=== PATIENT | female | born 1950 | race Caucasian/White ===

== ENCOUNTER → 2016-09-22 | Day surgery (SDC) | payer MEDICARE, OTHER ==
[~2016-09-22] VITALS: Ht 167.6 cm; Wt 102.1 kg
[~2016-09-22] MED LIST: AFRIN) (GENASAL15 ML NOSE; ALIGN4 MG PO; APRISO0.375 GM PO; BYSTOLIC5 MG PO; CALCIUM600 MG PO; CORDARONE,PACE200 MG PO; COUMADIN ** IA5 MG PO; CPAP INH; EVISTA60 MG PO; FISH OIL 500 M1 EAC3 PO; GLUCOPHAGE500 MG PO; GLUCOSAMINE 1,1 EACH PO; HYDROXYZINE HCL25 MG PO; IMDUR30 MG PO; IRON18 MG PO; K-TAB ER20 MEQ PO; LASIX40 MG PO; LIORESAL10 MG PO; LIPITOR80 MG PO; LOPRESSOR25 MG PO; LOVENOX 3030 MG/0.3 SUB-Q; MAGNESIUM OXID400 MG PO; MECLIZINE HCL25 M1 PO; NITROSTAT0.4 MG SL; NORCO 5-325 TA1 EACH PO; PENTASA500 MG PO; PROTONIX40 MG PO; TRADJENTA5 MG PO; VITAMIN D1000 UNI1 PO; ZESTRIL2.5 MG PO
--- NOTE | ~2016-09-22 | OR ---
PATIENT'S NAME: JOSH OLIVA [facility] AGE: 65 Y [address] ROOM: [place] [address] [place] [facility] [place]: 09/22/2016 OR/Procedure Report DISCHARGE DATE: FAMILY PHYSICIAN: Papa Dominguez MD ATTENDING PHYSICIAN: Merlin Moreno SURGEON: Merlin Moreno MD CAREER DEVELOPMENT SPECIALIST: DATE OF PROCEDURE: 09/22/2016 INDICATIONS: Atrial fibrillation refractory to antiarrhythmic drug therapy. DESCRIPTION FOR PROCEDURE: The patient was brought to the preoperative suite, prepped and draped in normal manner. Patches placed in the AP dimensions. Subsequently MAC anesthesia was delivered through the nurse telephone installer, Adrian Johnson. A total of 70 mg of propofol was given. Next, 200 joules of synchronized therapy was delivered with spiritism of sinus rhythm only to recur into atrial fibrillation. Subsequently 300 joules was given which did result in sustained sinus rhythm. CONCLUSION: 1. Successful spiritism of normal sinus rhythm using DC cardioversion. 2. 12-lead EKG is pending at the time of this dictation. 3. The patient will continue antiarrhythmic drug therapy as well as anticoagulation therapy. She will follow up in my office in 1 week for an INR and I will see her back in 2 weeks. I would like to thank Dr. Dominguez for the opportunity to participate in the care of Mrs. Oliva. MERLIN MORENO MD DJM/modl /[id number] d: 09/24/16 1104 t: 09/24/16 1134, OPERATIVE SUMMARY
== END | disposition disaster alternative care site (69) ==
LOC: GPOC 09-18 17:00 → GSDC 06:50 → GPOC 17:00
PROC: 5A2204Z Restoration of Cardiac Rhythm, Single (ICD-10-PCS; principal; 2016-09-22)
DX: I48.0 Paroxysmal atrial fibrillation (principal); I11.0 Hypertensive heart disease with heart failure; I50.9 Heart failure, unspecified; I25.10 Atherosclerotic heart disease of native coronary artery without angina pectoris; K21.9 Gastro-esophageal reflux disease without esophagitis; E78.2 Mixed hyperlipidemia; G47.33 Obstructive sleep apnea (adult) (pediatric); R00.1 Bradycardia, unspecified; E11.9 Type 2 diabetes mellitus without complications; G89.29 Other chronic pain; M54.5 Low back pain; E66.9 Obesity, unspecified; Z68.35 Body mass index [BMI] 35.0-35.9, adult; Z98.1 Arthrodesis status; Z88.0 Allergy status to penicillin; Z88.8 Allergy status to other drugs, medicaments and biological substances; Z90.49 Acquired absence of other specified parts of digestive tract; Z90.710 Acquired absence of both cervix and uterus; Z98.890 Other specified postprocedural states; Z79.01 Long term (current) use of anticoagulants; Z79.899 Other long term (current) drug therapy
CPT/HCPCS: J2001; J7030

== ENCOUNTER → 2016-09-29 | Outpatient (CLI) | payer MEDICARE, OTHER ==
[2016-09-29 15:43] LABS: BASOPHIL # 0.1 K/uL (0.0-0.2); EOSINOPHIL # 0.4 K/uL (0.0-0.5); HEMATOCRIT 39.2 % (33.0-46.0); HEMOGLOBIN 12.4 g/dL (10.0-15.0); IMMATURE GRANULOCYTE % 0.4 %; LYMPHOCYTE # 2.2 K/uL (0.8-4.0); MCH 29.7 pg (27.0-34.0); MCHC 31.6 gm/dL (32.0-36.5); MONOCYTE # 0.6 K/uL (0.0-1.0); MONOCYTE % 8.7 %; NEUTROPHIL # (ANC) 3.9 K/uL (1.8-7.8); NEUTROPHIL % 53.9 %; NRBC % 0 /100WBC (0-0.00); PLATELET COUNT 330 K/uL (150-450); RBC 4.17 M/uL (3.50-5.50); RDW-CV 14.7 % (11.9-14.6); WBC 7.2 K/uL (4.0-11.0)
[2016-09-29 15:59] LABS: ALBUMIN 3.7 gm/dL (3.5-5.0); ANION GAP 14.2 (10.0-19.0); CALCIUM 8.9 mg/dL (8.5-10.5); CREATININE 1.2 mg/dL (0.5-1.1); PHOSPHORUS 3.4 mg/dL (2.5-4.9); POTASSIUM 4.2 mMol/L (3.7-5.1)
[2016-09-29 16:07] LABS: BILIRUBIN URINE NEGATIVE (NEGATIVE); BLOOD URINE NEGATIVE /UL (NEGATIVE); GLUCOSE URINE NEGATIVE (NEGATIVE); KETONE URINE NEGATIVE (NEGATIVE); LEUKOCYTES URINE 25 /UL (NEGATIVE); NITRITE URINE NEGATIVE (NEGATIVE); PROTEIN URINE NEGATIVE (NEGATIVE); UROBILINOGEN URINE NORMAL (NORMAL)
[2016-09-29 16:13] LABS: COLOR URINE YELLOW (YELLOW); TURBIDITY URINE CLEAR (CLEAR)
[2016-09-29 16:35] LABS: BACTERIA URINE RARE (NEGATIVE); RBC URINE 0-2 #/HPF (NEGATIVE)
== END | disposition disaster alternative care site (69) ==
LOC: LCNC 15:36
PROVIDERS: Internal Medicine Interventional Cardiology
DX: I48.0 Paroxysmal atrial fibrillation (principal)

== ENCOUNTER 2016-10-05 05:51 | Day surgery (SDC) | payer MEDICARE, OTHER ==
[~2016-10-05] VITALS: Ht 167.6 cm; Wt 105.1 kg
--- NOTE | ~2016-10-05 | OR ---
PATIENT'S NAME: JOSH OLIVA [facility] AGE: 65 Y [address] ROOM: [address] [address] LOCATION: [facility] ADMIT DATE: 10/05/2016 OR/Procedure Report DISCHARGE DATE: 10/06/2016 FAMILY PHYSICIAN: Papa Dominguez MD ATTENDING PHYSICIAN: Oscar Moreno SURGEON: Oscar Moreno MD BUMPER OPERATOR: DATE OF PROCEDURE: 10/05/2016 PROCEDURE: Single chamber pacemaker insertion INDICATION: Sick sinus syndrome in the setting of chronic atrial fibrillation PROCEDURE/FINDINGS: Ms. Oliva was brought to the cardiac laboratory aide in the fasting state and prepped and draped in the normal manner. 1% lidocaine was used for local skin infiltration of the left infraclavicular region. An 18 gauge Cook needle was advanced to the left subclavian vein through which an 0.025 wire was placed. Needle was removed. Proximal end of the wire was attached to the surgical gown with a hemostat. Attention was then turned towards creation of the pacemaker pocket where additional 1% lidocaine was given. Next, a #11 blade was used for primary skin incision. Following this using Bovie cautery as well as blunt dissection pectoralis fascia was identified. This is entered into and dissected both cephalad as well as caudally. The previously placed 0.025 wires were brought through the skin into the pacemaker pocket on which a 7F sheath was placed. Following this the wire and dilator were removed. Using fluoroscopic guidance, the right ventricular lead was placed. This is a [employer] MRI S1 lead, model #7741, serial #[id number]. Thresholds were then obtained showing a sensing R wave of 18.4 mV, threshold of 0.8 volts at 0.5 milliseconds pulse width, impedance of 660 ohms. The anchor sleeve was sewn into the pectoralis muscle using two interrupted sutures of zero of silk. Following this the subcutaneous layer was closed with 2-0 Vicryl in running fashion. Next, the subcuticular layer was closed with 4.0 Vicryl also in a running fashion. Steri-Strips were applied as well as a pressure dressing and a Tegaderm dressing. The patient was placed into a shoulder immobilizer prior to the start of the study. CONCLUSION: 1. Single-chamber pacemaker implantation for sick sinus syndrome in the setting of chronic atrial fibrillation. 2. Patient will be instructed on the use of the home remote monitoring [place] system. 3. The patient is instructed to use the shoulder immobilizer for the next one week. PATIENT'S NAME: JOSH OLIVA [facility] AGE: 65 Y [address] ROOM: [place] [address] LOCATION: [facility] ADMIT DATE: 10/05/2016 OR/Procedure Report DISCHARGE DATE: 10/06/2016 FAMILY PHYSICIAN: Papa Dominguez MD ATTENDING PHYSICIAN: Oscar Moreno 4. Patient will follow up with me in two weeks in the outpatient clinic. 5. 6. OSCAR MORENO MD DJM/gb /[id number] CC: Printer CARDIOPULMINARY d: 10/14/16 1207 t: 10/21/16 1219, OPERATIVE SUMMARY
[~2016-10-05 05:51] MED LIST changes: -LOVENOX 3030 MG/0.3 SUB-Q
[2016-10-05] MEDS ORDERED: LOVENOX 3030 MG/0.3 SUB-Q (06:30)
[2016-10-05 06:43] LABS: INR - (THERAPEUTIC) 1.07 (0.92-1.07); PROTIME 11.2 SECONDS (9.8-11.4)
== END 2016-10-06 10:50 | disposition disaster alternative care site (69) ==
LOC: GPOC 05:51 → GPCU 05:51 → GPOC 06:00 → EDSTATUS 06:00 → GPCU 09:42
PROVIDERS: Internal Medicine Interventional Cardiology
PROC: 0JH604Z Insertion of Pacemaker, Single Chamber into Chest Subcutaneous Tissue and Fascia, Open Approach (ICD-10-PCS; principal; 2016-10-05)
PROC: 02HK3JZ Insertion of Pacemaker Lead into Right Ventricle, Percutaneous Approach (ICD-10-PCS; principal; 2016-10-05)
DX: I49.5 Sick sinus syndrome (principal); I48.2 Chronic atrial fibrillation; Z79.01 Long term (current) use of anticoagulants; I10 Essential (primary) hypertension; E78.2 Mixed hyperlipidemia; R00.1 Bradycardia, unspecified; E66.9 Obesity, unspecified; Z68.35 Body mass index [BMI] 35.0-35.9, adult; G47.33 Obstructive sleep apnea (adult) (pediatric); Z99.89 Dependence on other enabling machines and devices
CPT/HCPCS: C1786; C1898; J1650; J2001; J2250; J3010; J3370; J7030

== ENCOUNTER → 2016-10-15 | Outpatient (CLI) | payer MEDICARE, OTHER ==
[~2016-10-15] MED LIST changes: +LOVENOX 3030 MG/0.3 SUB-Q
[2016-10-15 14:46] LABS: BASOPHIL % 0.3 %; EOSINOPHIL % 0.2 %; HEMATOCRIT 36.9 % (33.0-46.0); IMMATURE GRANULOCYTE # 0.1 K/uL (0.0-0.3); IMMATURE GRANULOCYTE % 0.4 %; LYMPHOCYTE # 1.9 K/uL (0.8-4.0); LYMPHOCYTE % 13.7 %; MCH 30.8 pg (27.0-34.0); MCHC 32.5 gm/dL (32.0-36.5); MCV 94.6 fl (83.0-98.0); MONOCYTE # 1.1 K/uL (0.0-1.0); MONOCYTE % 7.5 %; MPV 10.4 fl (9.4-12.4); NEUTROPHIL % 77.9 %; NRBC % 0 /100WBC (0-0.00); PLATELET COUNT 319 K/uL (150-450); RDW-CV 15.7 % (11.9-14.6); WBC 14.1 K/uL (4.0-11.0)
[2016-10-15 14:47] LABS: BILIRUBIN URINE NEGATIVE (NEGATIVE); BLOOD URINE NEGATIVE /UL (NEGATIVE); COLOR URINE YELLOW (YELLOW); GLUCOSE URINE NEGATIVE (NEGATIVE); KETONE URINE NEGATIVE (NEGATIVE); LEUKOCYTES URINE 100 /UL (NEGATIVE); NITRITE URINE POSITIVE (NEGATIVE); PROTEIN URINE 15 mg/dL (NEGATIVE); TURBIDITY URINE CLEAR (CLEAR); UROBILINOGEN URINE NORMAL (NORMAL)
[2016-10-15 14:58] LABS: BACTERIA URINE MANY (NEGATIVE); RBC URINE NEGATIVE #/HPF (NEGATIVE)
[2016-10-15 14:59] LABS: WBC CLUMPS URINE FEW (NEGATIVE)
== END | disposition disaster alternative care site (69) ==
LOC: LCNC 14:41
PROVIDERS: Internal Medicine Interventional Cardiology
DX: R50.9 Fever, unspecified (principal)

== ENCOUNTER → 2016-10-20 | Outpatient (CLI) | payer MEDICARE, OTHER | END | disposition disaster alternative care site (69) | LOC: GRAD 15:06 | DX: Z48.812 Encounter for surgical aftercare following surgery on the circulatory system (principal); Z95.0 Presence of cardiac pacemaker ==